=== PATIENT | female | born 2000 | race Caucasian/White ===

== ENCOUNTER 2022-11-08 19:00 | Inpatient (IN) | payer OTHER, SELFPAY ==
[2022-11-07 22:53] VITALS: BMI 37.0
[2022-11-07 23:01] VITALS: PULSE 76; O2SAT 97
[2022-11-07 23:02] VITALS: BP 163/102; PULSE 78; TEMP 37; O2SAT 99
[2022-11-07] MEDS: 0.9% Saline Lock 10 ML Syringe IV (23:10)
[2022-11-07 23:17] VITALS: BP 156/99; PULSE 78
[2022-11-07 23:33] VITALS: BP 155/106; PULSE 71
[2022-11-07 23:39] LABS: Hematocrit 31.2 % (37-47); Hemoglobin 10.3 g/dL (12.0-15.0); Mean Corpuscular Hgb 31.7 pg (27.0-32.0); Platelet Count 200 K/mm3 (150-450); RBC Distribution Width CV 13.4 % (11.6-14.6); RBC Distribution Width SD 46.5 fl (35.1-43.9); Red Blood Count 3.25 M/mm3 (4.2-5.4); White Blood Count 8.1 K/mm3 (4.4-11.0)
[2022-11-07 23:47] VITALS: BP 155/100; PULSE 65
[2022-11-07 23:54] LABS: AST(SGOT) 20 U/L (15-37); Alanine Aminotransfer ALT/SGPT 16 U/L (13-56); Creatinine, Serum 0.79 mg/dL (0.55-1.02); EST Glomerular Filtration Rate 96 mL/min (>60); Est Glom Filt Rate - Afr Amer 116 mL/min (>60); Estimated Creatinine Clearance 111.72 ml/min; Uric Acid 5.5 mg/dL (2.6-6.0)
[2022-11-07 23:56] LABS: Protein, Urine (Random) 17.4 mg/dL (<11.9); Protein:Creat Ratio 154 mg/g CRE (0-200)
[2022-11-08] VITALS (19 sets, daily range): BP systolic 125–147; BP diastolic 70–104; PULSE 47–96; TEMP 36.3–37.2; O2SAT 97–98
--- NOTE | 2022-11-08 04:49 | PCM.HP.OB ---
HPI - General General Date of Admission: 11/08/22 Date of Service: 11/08/22 Chief Complaint: headache, swelling, elevated blood pressure at home HPI Narrative SABIHA TSAI, is a 22 F 36w6d who presents for r/o pre eclampsia. She reports worsened swelling and weight gain recently. She had a dull headache yesterday that improved with Tylenol. She has a dull headache currently. No visual changes. No upper abdominal pain, malaise, nausea, vomiting. No ctx, vb, lof. Good FM. She checked her BP's at home yesterday and they were elevated in the mild range. [facility] Medical History (Updated 11/08/22 @ 04:[address] Ce Spann, DO) Anxiety Gestational HTN Polyhydramnios Home Medications aspirin 81 mg capsule 81 mg PO DAILY BMI 11/07/22 [History Last Taken 11/07/22] escitalopram oxalate 10 mg tablet (Lexapro) 10 mg PO DAILY anxiety 11/07/22 [History Last Taken 11/07/22] vits,calcium 91-iron 28 mg-folic 975 mcg-dha 200 mg oral pack ( + DHA) 1 pkg PO DAILY pregnacny 11/07/22 [History Last Taken 11/07/22] Allergy/AdvReac Type Severity Reaction Status Date / Time No Known Allergies Allergy Verified 11/07/22 22:54 Social History Smoking Status: Never smoker History Elective abortions Hx Para 0 Spontaneous abortions Hx # Term Pregnancies Ectopic pregnancies Hx # Pregnancies Multiple births # of living children NST FHR Rate Baby A Baseline: 120 Variability:: Moderate Accelerations:: 15 x 15 Decelerations:: None FHR Category:: Category I Uterine Activity:: Irregular ctx's Vital Signs Vital Signs Vital Signs: 11/07/22 23:01 11/07/22 23:01 11/07/22 23:02 Temperature Temperature Source Pulse Rate 76 Blood Pressure 163/102 H BP Systolic 163 BP Diastolic 102 Pulse Ox 97 11/07/22 23:02 11/07/22 23:17 11/07/22 23:17 Temperature Temperature Source Pulse Rate 78 78 Blood Pressure 156/99 H BP Systolic 156 BP Diastolic 99 Pulse Ox 11/07/22 23:33 11/07/22 23:33 11/07/22 23:47 Temperature Temperature Source Pulse Rate 71 Blood Pressure 155/106 H 155/100 H BP Systolic 155 155 BP Diastolic 106 100 Pulse Ox 11/07/22 23:47 11/07/22 23:02 11/07/22 23:02 Temperature Temperature Source Temporal Pulse Rate 65 Blood Pressure BP Systolic BP Diastolic Pulse Ox 99 11/07/22 23:02 11/08/22 00:03 11/08/22 00:03 Temperature 98.6 F Temperature Source Pulse Rate 79 Blood Pressure 143/104 H BP Systolic 143 BP Diastolic 104 Pulse Ox 11/08/22 00:18 11/08/22 00:18 11/08/22 00:32 Temperature Temperature Source Pulse Rate 91 Blood Pressure 147/97 H 135/78 H BP Systolic 147 135 BP Diastolic 97 78 Pulse Ox 11/08/22 00:32 11/08/22 00:50 11/08/22 00:50 Temperature Temperature Source Pulse Rate 60 57 L Blood Pressure 136/77 H BP Systolic 136 BP Diastolic 77 Pulse Ox 11/08/22 01:02 11/08/22 01:02 11/08/22 02:10 Temperature Temperature Source Pulse Rate 59 L Blood Pressure 136/78 H 131/70 H BP Systolic 136 131 BP Diastolic 78 70 Pulse Ox 11/08/22 02:10 11/08/22 02:10 11/08/22 02:10 Temperature 97.4 F L Temperature Source Temporal Pulse Rate 50 L Blood Pressure BP Systolic BP Diastolic Pulse Ox 11/08/22 03:16 11/08/22 03:16 11/08/22 03:16 Temperature Temperature Source Pulse Rate 47 L 52 L Blood Pressure 125/70 H BP Systolic 125 BP Diastolic 70 Pulse Ox 11/08/22 03:16 11/08/22 04:16 11/08/22 04:16 Temperature Temperature Source Pulse Rate 57 L Blood Pressure 144/95 H BP Systolic 144 BP Diastolic 95 Pulse Ox 98 Weight Weight: 243 lb 13.3 oz Body Mass Index (BMI) 37.0 Labs Labs Labs: Hct 31.2 % (37-47) L Hgb 10.3 g/dL (12.0-15.0) L Assessment & Plan (1) 36 weeks gestation of : PLAN: Admit for observation for serial BP monitoring. Initial BP was severe but no additional severe ranges since. Majority of BP's mild range. Pre e labs normal. - Discussed with pt gHTN at this time and recommended delivery at 37 weeks. I have some concern that she will develop severe gHTN or pre e given her initial severe range BP, dull headache, 1+ pitting edema. Discussed r/b/a of starting an induction today with an intracervical villanueva. Discussed risks of prematurity with baby with induction, and also risk of developing worsened high blood pressure disease with prolonging . Questions answered. Will continue with observation at this time and discuss with provider who will be microsoft solutions architect for the day today. (2) Headache in : (3) Gestational hypertension: (4) Obesity affecting : (5) Polyhydramnios:
[2022-11-08] MEDS: Lactated Ringers 1,000 ML 50 ML IV (19:30)
[2022-11-08 19:50] LABS: Absolute Lymphocyte Count 2.02 X10^3/uL (0.83-4.51); Absolute Neutrophil Count 6.1 X10^3/uL (2.0-7.7); Basophil# 0.02 X10^3/uL; Basophil% 0.2 % (0-1); Eosinophil# 0.02 X10^3/uL; Eosinophils% 0.2 % (0-5); Hematocrit 32.3 % (37-47); Hemoglobin 10.6 g/dL (12.0-15.0); Lymphocyte # 2.02 X10^3/ul (0.83-4.51); Lymphocyte % 22.6 % (19-41); Mean Corp Hgb Conc 32.8 g/dL (32-36); Mean Corpuscular Hgb 31.5 pg (27.0-32.0); Mean Corpuscular Volume 95.8 fL (81-99); Mean Platelet Vol. 12.9 fl (6.2-12.0); Monocyte# 0.77 X10^3/uL; Monocyte% 8.6 % (0-10); NRBC Flagged by Analyzer 0 % (0-5); Neutrophil # 6.08 X10^3/uL (2.7-7.7); Neutrophil % 68.1 % (47-70); Platelet Count 214 K/mm3 (150-450); RBC Distribution Width CV 13.5 % (11.6-14.6); RBC Distribution Width SD 47.5 fl (35.1-43.9); Red Blood Count 3.37 M/mm3 (4.2-5.4); White Blood Count 8.9 K/mm3 (4.4-11.0)
--- NOTE | 2022-11-08 20:05 | PCM.HP.OB ---
HPI - General General Date of Admission: 11/08/22 HPI Narrative SABIHA TSAI, is a 22 F who presents for induction. She was seen earlier for for headache, swelling & elevated BP. Maternal Data Information Final JAYLENE: 11/30/22 Gestational age: 36&6 PFSH PFSH Medical History Anxiety Gestational HTN Polyhydramnios Home Medications aspirin 81 mg capsule 81 mg PO DAILY BMI 11/07/22 [History Last Taken 11/07/22] escitalopram oxalate 10 mg tablet (Lexapro) 10 mg PO DAILY anxiety 11/07/22 [History Last Taken 11/07/22] vits,calcium 91-iron 28 mg-folic 975 mcg-dha 200 mg oral pack ( + DHA) 1 pkg PO DAILY pregnacny 11/07/22 [History Last Taken 11/07/22] Allergy/AdvReac Type Severity Reaction Status Date / Time No Known Allergies Allergy Verified 11/07/22 22:54 Social History Smoking Status: Never smoker History Elective abortions Hx Para 0 Spontaneous abortions Hx # Term Pregnancies Ectopic pregnancies Hx # Pregnancies Multiple births # of living children NST FHR Rate Baby A Baseline: 135 Variability:: Moderate Accelerations:: 15 x 15 Decelerations:: None Uterine Activity:: Irregular Vital Signs Vital Signs Vital Signs: 11/07/22 23:01 11/07/22 23:01 11/07/22 23:02 Temperature Temperature Source Pulse Rate 76 Blood Pressure 163/102 H BP Systolic 163 BP Diastolic 102 Pulse Ox 97 11/07/22 23:02 11/07/22 23:17 11/07/22 23:17 Temperature Temperature Source Pulse Rate 78 78 Blood Pressure 156/99 H BP Systolic 156 BP Diastolic 99 Pulse Ox 11/07/22 23:33 11/07/22 23:33 11/07/22 23:47 Temperature Temperature Source Pulse Rate 71 Blood Pressure 155/106 H 155/100 H BP Systolic 155 155 BP Diastolic 106 100 Pulse Ox 11/07/22 23:47 11/07/22 23:02 11/07/22 23:02 Temperature Temperature Source Temporal Pulse Rate 65 Blood Pressure BP Systolic BP Diastolic Pulse Ox 99 11/07/22 23:02 11/08/22 00:03 11/08/22 00:03 Temperature 98.6 F Temperature Source Pulse Rate 79 Blood Pressure 143/104 H BP Systolic 143 BP Diastolic 104 Pulse Ox 11/08/22 00:18 11/08/22 00:18 11/08/22 00:32 Temperature Temperature Source Pulse Rate 91 Blood Pressure 147/97 H 135/78 H BP Systolic 147 135 BP Diastolic 97 78 Pulse Ox 11/08/22 00:32 11/08/22 00:50 11/08/22 00:50 Temperature Temperature Source Pulse Rate 60 57 L Blood Pressure 136/77 H BP Systolic 136 BP Diastolic 77 Pulse Ox 11/08/22 01:02 11/08/22 01:02 11/08/22 02:10 Temperature Temperature Source Pulse Rate 59 L Blood Pressure 136/78 H 131/70 H BP Systolic 136 131 BP Diastolic 78 70 Pulse Ox 11/08/22 02:10 11/08/22 02:10 11/08/22 02:10 Temperature 97.4 F L Temperature Source Temporal Pulse Rate 50 L Blood Pressure BP Systolic BP Diastolic Pulse Ox 11/08/22 03:16 11/08/22 03:16 11/08/22 03:16 Temperature Temperature Source Pulse Rate 47 L 52 L Blood Pressure 125/70 H BP Systolic 125 BP Diastolic 70 Pulse Ox 11/08/22 03:16 11/08/22 04:16 11/08/22 04:16 Temperature Temperature Source Pulse Rate 57 L Blood Pressure 144/95 H BP Systolic 144 BP Diastolic 95 Pulse Ox 98 11/08/22 07:22 11/08/22 07:22 11/08/22 07:22 Temperature Temperature Source Pulse Rate 66 68 Blood Pressure 140/95 H BP Systolic 140 BP Diastolic 95 Pulse Ox 11/08/22 07:22 11/08/22 07:22 11/08/22 07:22 Temperature Temperature Source Temporal Pulse Rate Blood Pressure 140/95 H BP Systolic 140 BP Diastolic 95 Pulse Ox 98 11/08/22 07:22 11/08/22 07:22 11/08/22 07:22 Temperature 97.3 F L Temperature Source Pulse Rate 72 Blood Pressure BP Systolic BP Diastolic Pulse Ox 98 11/08/22 19:20 11/08/22 19:20 11/08/22 19:24 Temperature Temperature Source Pulse Rate 93 96 Blood Pressure 142/92 H BP Systolic 142 BP Diastolic 92 Pulse Ox 06/25/23 19:24 11/08/22 19:29 11/08/22 19:29 Temperature Temperature Source Pulse Rate 91 Blood Pressure BP Systolic BP Diastolic Pulse Ox 98 98 Weight Weight: 243 lb 13.3 oz Body Mass Index (BMI) 37.0 Physical Exam Const alert, oriented x3 and no apparent distress Chest inspection of chest normal GI soft to palpation, non-tender and non-distended Inspection: gravid external exam normal Narrative: cvx - /-3, intracervical villanueva placed without difficulty Labs Labs Labs: Blood Type Pending Antibody Screen Pending Hct 32.3 % (37-47) L Hgb 10.6 g/dL (12.0-15.0) L Syphilis Total Ab Pending See [facility] H&P Assessment & Plan (1) Gestational hypertension: COMMENT: @ 36&6 (2) Polyhydramnios: PLAN: Plan Admit to L&D IOL - intracervical villanueva placed & will start pitocin at midnight PreE labs normal & will monitor BP's GBS negative EFW - less than 4500g, patient with adequate pelvis Pain - epidural as desired Routine care
[2022-11-08] MEDS: 0.9% Normal Saline Single 100 ML IV.SOLN. INTRA-UTER (20:08)
[2022-11-08 21:00] LABS: Syphilis Antibodies Non-reactive
[2022-11-09] VITALS (87 sets, daily range): BP systolic 120–160; BP diastolic 67–104; PULSE 65–195; RESP 14–15; TEMP 36.2–37.2; O2SAT 85–100
[2022-11-09] MEDS: Oxytocin 15 Units/NS 250ml 15 UNITS/250 ML IV.SOLN 2 UNITS IV (00:03)
[2022-11-09] MEDS: LACTATED RINGERS 500 ML 999 ML IV (05:58)
[2022-11-09] MEDS: fentaNYL-bupivacaine (epidural) 100 ML BAG EPIDURAL (06:46)
--- NOTE | 2022-11-09 08:45 | PN.OBGYN_ITS ---
Subjective Subjective Resting comfortable in bed with epidural. Partner at bedside. Objective Data Objective Data Vital Signs: Vital Signs Temp Pulse BP Pulse Ox 98.3 F 70 134/76 H 98 11/09/22 08:22 11/09/22 08:22 11/09/22 08:21 11/09/22 08:22 Weight: 243 lb 13.3 oz Body Mass Index (BMI) 37.0 Intake & Output: Intake and Output for Last 24 Hours 11/07/22 11/08/22 11/09/22 23:59 23:59 23:59 Intake Total 1037.73 / 1037.73 Balance 1037.73 / 1037.73 Lab / Micro Data Result Diagrams: 11/08/22 19:30 11/07/22 23:10 Labs: Laboratory Results - last 24 hr 11/08/22 19:30: WBC 8.9, RBC 3.37 L, Hgb 10.6 L, Hct 32.3 L, MCV 95.8, MCH 31.5, MCHC 32.8, RDW Std Deviation 47.5 H, RDW Coeff of Lyn 13.5, Plt Count 214, MPV 12.9 H, Immature Gran % (Auto) 0.300, Neut % (Auto) 68.1, Lymph % (Auto) 22.6, [place] % (Auto) 8.6, Eos % (Auto) 0.2, Baso % (Auto) 0.2, Absolute Neuts (auto) 6.1, Absolute Lymphs (auto) 2.02, Nucleated RBC % 0 11/08/22 19:30: Blood Type A POSITIVE, Antibody Screen NEGATIVE 11/08/22 19:50: Syphilis Total Ab Non-reactive Physical Exam Manual OB Exam: presentation cephalic, dilated 4, effaced 70, station -1 and other AROM clear fluid Amniotic Fluid: clear amniotic fluid NST FHR Rate Baby A Baseline: 130 Variability:: Moderate Accelerations:: 15 x 15 Decelerations:: None FHR Category:: Category I Uterine Activity:: every 2-3 minutes, strong Assessment & Plan (1) Polyhydramnios: (2) Obesity affecting : (3) Gestational hypertension: COMMENT: @ 36&6 PLAN: Plan 1) Epidural for pain management 2) Continue with pitocin IOL per protocol 3) AROM 4) BP remains mild range 5) collaborative physician and notified of patient status.
[2022-11-09] MEDS: Ondansetron 4 MG/2 ML Vial IV (08:57)
[2022-11-09] MEDS: Lactated Ringers 1,000 ML 200 ML IV (09:02)
[2022-11-09] MEDS: Oxytocin 15 Units/NS 250ml 15 UNITS/250 ML IV.SOLN 83 UNITS IV (12:56)
--- NOTE | 2022-11-09 13:26 | EX.PCM.OBRPT ---
Assessment & Plan (1) Vaginal delivery: (2) First degree perineal laceration: Vaginal Delivery Maternal Presentation Maternal Presentation: Medically Indicated Induction Type of Induction: Pitocin and Pal Bulb Medical Reason for Induction: Gestational Hypertension Operative Information Date of Procedure: 11/09/22 Pre-Operative Diagnosis: GHTN, Induction of Labor Post-Operative Diagnosis: , first degree perineal laceration Surgery / Procedure Performed: Spontaneous Vaginal Delivery Type of Anesthesia: Epidural Estimated Blood Loss: 450 mle Time of Delivery: 11:54 Findings Description of Procedure: Progressed to complete with urge to push. Epidural for pain management. of viable male over first degree perineal laceration. APGARS 8,9 respectively. Infant head delivered with body immediately forthcoming. Placed on maternal abdomen, strong cry. Mouth and nares suctioned for secretions. Pitocin started for active 3rd stage management. Cord doubly clamped and cut by FOB after pulsations ceased, delayed cord clamping. Placenta delivered intact via mateusz, 3 vessel cord intact. Perineum inspected and revealed 1st degree perineal laceration. Repaired with 3.0 vicryl rapide and epidural. Fundus firm and hemostasis achieved. EBL 450ml. Mom and baby stable, planning to breastfeed. Family bonding well. Dr. Spann notified of delivery. Presentation: Vertex and TRACE Amniotic Membrane Rupture Type: Artificial Amniotic Fluid Description: Clear Placental Delivery Description: Expressed Placenta Disposition: [facility] Cord Vessel Description: 3 Vessels Cord Entanglement: Around neck x 1, loose Nuchal Cord Compression: Without compression Infant A Gender: Male (1 minute): 8 (5 minute): 9 Delayed Cord Clamping: Yes Post Vaginal Delivery Medications Given After Delivery: IV Pitocin Episiotomy Description: None Laceration: 1st degree Complication Complications: None
[2022-11-09] MEDS: 0.9% Saline Lock 10 ML Syringe IV (15:08)
[2022-11-09] MEDS: Benzocaine/Lanolin/Aloe Vera 1 SPRAY EACH TOPICAL (15:08)
[2022-11-09] MEDS: Ibuprofen 600 MG Tablet PO (15:08)
[2022-11-09] MEDS: Acetaminophen 500 MG Tablet 1000 MG PO (20:00)
[2022-11-09] MEDS: Escitalopram Oxalate 10 MG Tablet PO (20:00)
[2022-11-10] VITALS (11 sets, daily range): BP systolic 118–131; BP diastolic 71–91; PULSE 54–65; RESP 15–16; TEMP 36.5–37; O2SAT 98–99
[2022-11-10] MEDS: Ibuprofen 600 MG Tablet PO ×2 (08:57→20:14)
--- NOTE | 2022-11-10 08:59 | PCM.PN.OB ---
Subjective Subjective Denies complaints Objective Data Objective Data Vital Signs: Vital Signs Temp Pulse Resp BP Pulse Ox O2 Del Method 97.7 F L 65 16 131/91 H 99 Room Air 11/10/22 07:38 11/10/22 07:38 11/10/22 07:38 11/10/22 07:38 11/10/22 07:35 11/10/22 05:15 Oxygen Delivery Method Room Air Weight: 243 lb 13.3 oz Body Mass Index (BMI) 37.0 Intake & Output: Intake and Output for Last 24 Hours 11/08/22 11/09/22 11/10/22 23:59 23:59 23:59 Intake Total 3180.00 / 3180.00 Output Total 1700 / 1700 600 / 600 Balance 1480.00 / 1480.00 -600 / -600 Lab / Micro Data Result Diagrams: 11/08/22 19:30 11/07/22 23:10 Physical Exam Const alert, oriented x3 and no apparent distress HEENT normocephalic GI soft to palpation, non-tender and non-distended GI Narrative: fundus firm, mid & below umbilicus Extremity normal to inspection and no calf tenderness Assessment & Plan (1) Gestational hypertension: COMMENT: PPD#1 (2) Vaginal delivery: PLAN: Plan Routine care BP normal to minimal elevation & will monitor
--- NOTE | 2022-11-10 11:24 | CASEMGMT ---
Social Work Assessment Labor and Delivery Unit Patient Address: [address] [place] [address] [address] [id number] Phone number: [phone] Date of Referral: 11/09/22 Time of Referral: 1301 Referred By: Loren Stanton Date of Intervention: 11/10/22 Time of Intervention: 1020 Reason for Referral: Mental Health History obtained from: medical records and mother of baby (JOSE), Alanis and father of baby (FOB), Jace. Household composition: Currently residing at the home are parents, no one else lives with family at this time. Patient's parent/guardian status: Parents report they ciro when they were 15 years old at a [employer] event and they have been together ever since. They will be celebrating their one year wedding anniversary next month. Medical History: This is first and delivery for JOSE. JOSE started to experience pre-eclampsia and required an induction at 37 weeks gestation. JOSE reports that she had a lot of anxiety due to not knowing what to expect with the induction and labor, but now that baby is here she is feeling much better. JOSE received routine are with [facility]. Baby boy, Kip, was born at 37 weeks weighing 3180 grams and his apgars were 8 and 9. Baby will be seen by fish roe processor Dr. Lamar Mcneill. Educational Status: Both parents attended college. FOLizzy obtained his teaching degree. JOSE has two more semesters left at [employer] to obtain her nursing degree. Parents deny concerns with reading/ writing and learning. Financial Status: JESSIE is a highway technician and transit coach operator. He gets most of the summer off and will return to work mid December. JOSE works as a nurses aide at [employer] in [place]. JOSE states that once she obtains her nursing degree she is not sure what capacity she would like to work in. Infant Supplies: Parents report they had a baby shower and have received everything they need for baby including a safe sleep space, car seat, clothes, diapers and wipes. Parents state that baby is first baby on both sides of the family and he is very spoiled already. Childcare/ Caregiver(s): Parents report that they will not need to pay for childcare because they have a lot of family members who are willing and able to watch baby when both parents are back to work. Transportation: No transportation barriers at this time, both parents have drivers license and reliable transportation. Programs/Agencies Involved: None- sw provided literature on [facility] and encouraged parents to get connected. Parents to discuss and sw will revisit with them prior to discharge. Children Services/Legal Issues: None Behavioral Health Issues Mental Health History: FOB denies mental health history. JOSE disclosed being diagnosed with anxiety. MOB states that she was taking Lexapro earlier in , and discontinued. MOB states that several weeks ago she started to get anxious regarding delivery and talked to her PCP about restarting Lexapro in preparation to maintain her mental health after delivery. Sw educated both parents on signs and symptoms of baby blues and post depression. FOB stepped out and MOB completed [place] Depression screen. MOB score was 9, sw provided support and encouraged MOB to follow up with PCP/ OBGYN. Sw provided MOB with list of counseling agencies in [facility]. MOB states that she feels a lot of the questions on the screen were reflective of how she was feeling this past week leading up to delivery. MOB states that now that baby has been born and she is through the birthing process she feels elated and is no longer overwhelmed or anxious. Substance Use History: none, MOB denies substances during . Family History: MOB denies family substance use history. Drug Screens: none Family/Social Stressors: JOSE reports that she does not feel stressed or have any stressors at this time. Support Systems: Parents state they have a large support system found in family and friends. Depression/Shaken Baby/Safe Sleeping: Sw provided education and resources on post depression. Sw educated parents to never shake a baby, parents expressed understanding. Sw also discussed ABCs of safe sleep and importance of following guidelines to prevent SIDS. Parents expressed understanding. ASSESSMENT: Parents were engaged in conversation during sw assessment. Parents have large support system and all provisions necessary to take baby home. Parents were open and receptive to sw involvement and support. MOB scored 9 on [place]anco and was encouraged to follow up with PCP/ OBGYN. PLAN: Sw will follow up with parents prior to discharge to determine whether or not they want to get connected to [facility]. No other services requested or indicated. Fran Smith, C[employer]ER [employer], SYSTEM ADMINISTRATOR
[2022-11-10] MEDS: Escitalopram Oxalate 10 MG Tablet PO (20:15)
[2022-11-11] VITALS (9 sets, daily range): BP systolic 139–146; BP diastolic 91–98; PULSE 60–71; RESP 16; TEMP 36.1–36.5; O2SAT 97–98
--- NOTE | 2022-11-11 08:32 | PCM.PN.OB ---
Subjective Subjective Patient seen at bedside. Denies any headache, dizziness, vision changes or RUQ pain. Ambulating and voiding without difficulty. with support. Desires discharge home later today. Objective Data Objective Data Vital Signs: Vital Signs Temp Pulse Resp BP Pulse Ox O2 Del Method 97.3 F L 61 16 146/98 H 98 Room Air 11/11/22 01:57 11/11/22 08:11 11/11/22 01:57 11/11/22 08:11 11/11/22 07:52 11/11/22 01:57 Oxygen Delivery Method Room Air Weight: 243 lb 13.3 oz Body Mass Index (BMI) 37.0 Intake & Output: Intake and Output for Last 24 Hours 11/09/22 11/10/22 11/11/22 23:59 23:59 23:59 Intake Total 3180.00 / 3180.00 Output Total 1700 / 1700 600 / 600 Balance 1480.00 / 1480.00 -600 / -600 Lab / Micro Data 11/08/22 19:30 11/07/22 23:10 ROS Eyes Eyes: Denies blurry vision, change in vision or spots in vision ENT HEENT: Denies dizziness or headache(s) Cardiovascular Cardiovascular: Denies abdominal pain, chest pain or dyspnea Respiratory/Chest Respiratory/Chest: Denies cough, dyspnea, shortness of breath at rest or shortness of breath with exertion Gastrointestinal Gastrointestinal: Denies abdominal pain, diarrhea or vomiting Genitourinary Genitourinary: Denies change in urinary stream, difficulty urinating or dysuria Musculoskeletal Musculoskeletal: Reports none Integumentary Integumentary: Denies rash Neurologic Neurologic: Denies dizziness, headache(s), memory loss or weakness Physical Exam Const alert and no apparent distress General Appearance: cooperative and comfortable Exam Limitations: no limitations HEENT normocephalic Eyes General Eye: normal appearance of both eyes Neck full ROM General: normal visual inspection Chest Chest: symmetrical chest wall rise Resp normal respiratory effort and normal air movement Effort and Inspection: symmetric chest movement Auscultation: clear to auscultation bilaterally Cardio regular rate and regular rhythm GI normal to inspection, nondistended, normoactive bowel sounds Back/Spine normal ROM Extremity full ROM and no calf tenderness General Extremity: normal exam except as noted Skin no rashes or lesions noted Neuro CN's II-XII intact bilaterally Psych mental status grossly normal Assessment & Plan (1) First degree perineal laceration: (2) Vaginal delivery: (3) Obesity affecting : (4) Gestational hypertension: COMMENT: PPD#2 PLAN: Plan PPD 2 GHTN- current pressures today are 139-145/96 Start Labetalol 200 mg PO BID Recheck BP after medication initiated If D/C home - blood pressure monitoring program Follow up in office this week Dr. Mart involved in plan of care
--- NOTE | 2022-11-11 09:44 | CASEMGMT ---
Social Work Labor and Delivery Unit ? Summary:?Following up regarding resources ? Assessment:??Sw presented to bedside and met with parents. Mother of baby (MOB) was laying in bed and father of baby (FOB) was sitting on couch holding baby. Sw asked parents how they are doing and assessed for any needs or concerns at this time. Parents state they are doing well. MOB states that she is ready for discharge but her blood pressure is up and she is not sure now if she will be able to be discharged. Sw provided support and empathy. Sw asked parents if they are interested in a referral to [facility] when they are ready for discharge. MOB stated that they are going to pass for now, but thanked sw for the information on the resource and agreed to get connected on her own if she feels they would benefit from the resource. Sw encouraged parents to reach out if any needs or concerns should present themselves, parents agreed. ? Intervention:?Parents were engaged with sw. MOB appeared understandably upset due to elevated blood pressure today which may prohibit her from being medically ready for discharge- support provided. ? Plan:?No further sw needs identified at this time. ? ? No other services requested or indicated. Fran Smith, GLASS MOULD CLEANER, STAFF RADIATION THERAPIST
[2022-11-11] MEDS: Labetalol 100 MG Tablet PO (10:06)
--- NOTE | 2022-11-11 16:22 | DCINST_ITS ---
Discharge Instructions Diet Discharge Diet: No restrictions Activity May resume sexual activity in: 6-8 weeks Weight Bearing Status: Weight bearing as tolerated Dressing / Incision Call your doctor if you observe: Fever of 101 or Higher, Inability to urinate, Using more than 1 pad per hour, Shortness of breath, Chest pain, Calf discomfort and Uncontrolled pain Follow Up Care Please Follow Up With: Felipa Beard CNM When: 1 week visit/ 6 weeks in office Test Results: Test results from this visit will be discussed in further detail at your follow- up appointment, if applicable. Discharge Plan Admission Admit Date/Time: 11/08/22 19:00 Primary Reason for Your Visit: Labor and Delivery Attending Provider: Loren Stanton Instructions Patient Instructions: After a Vaginal , Understanding Preeclampsia Discharge Orders/Prescriptions Prescriptions: New labetalol 200 mg tablet 200 mg PO BID Qty: 30 2RF No Action escitalopram oxalate [Lexapro] 10 mg Tablet 10 mg PO DAILY + DHA 28 mg iron- 975 mcg-200 mg Combo Pack 1 pkg PO DAILY aspirin 81 mg Capsule 81 mg PO DAILY Disposition Disposition (needs filled in before D/C Order can be placed): Home, Self Care
== END 2022-11-11 16:05 | disposition home or self-care (01) | DRG 807 ==
LOC: WPOUT 19:06 → WP 19:07
PROVIDERS: Obstetrics & Gynecology; Admitting Provider Advanced Practice Midwife; Visit Provider Advanced Practice Midwife
DX: O13.4 Gestational [pregnancy-induced] hypertension without significant proteinuria, complicating childbirth (principal); Z37.0 Single live birth; O40.3XX0 Polyhydramnios, third trimester, not applicable or unspecified; E66.01 Morbid (severe) obesity due to excess calories; F41.9 Anxiety disorder, unspecified; O99.344 Other mental disorders complicating childbirth; O70.0 First degree perineal laceration during delivery; O99.214 Obesity complicating childbirth; O69.81X0 Labor and delivery complicated by cord around neck, without compression, not applicable or unspecified; Z79.82 Long term (current) use of aspirin; Z3A.37 37 weeks gestation of pregnancy; Z79.899 Other long term (current) drug therapy
CPT/HCPCS: 59025; 59050; 82565; 82570; 84156; 84450; 84460; 84550; 85025; 85027; 86780; 86850; 86900; 86901; 99221; J7120; A4216; G0378; J2405

== ENCOUNTER → 2024-11-16 | Outpatient (CLI) | payer OTHER, SELFPAY ==
[2024-11-16 12:26] LABS: Hematocrit 38.5 % (37-47); Hemoglobin 12.7 g/dL (12.0-15.0); Immature Granulocytes Count 0.020 X10^3/uL (0.0-0.0); Mean Corp Hgb Conc 33.0 g/dL (32-36); Mean Corpuscular Volume 95.3 fL (81-99); Mean Platelet Vol. 11.1 fl (6.2-12.0); NRBC Flagged by Analyzer 0 % (0-5); Platelet Count 271 K/mm3 (150-450); RBC Distribution Width CV 12.7 % (11.6-14.6); RBC Distribution Width SD 44.5 fl (35.1-43.9); Red Blood Count 4.04 M/mm3 (4.2-5.4); White Blood Count 6.7 K/mm3 (4.4-11.0)
[2024-11-16 13:01] LABS: AST(SGOT) 21 U/L (<=31); Alanine Aminotransfer ALT/SGPT 18 U/L (<=34); Albumin, Serum 4.4 g/dL (3.5-5.0); Alkaline Phosphatase 51 U/L (35-104); Anion Gap 11 (5-15); BUN 20 mg/dL (4-19); BUN/Creat Ratio 32.4 RATIO (10-20); Calcium,Total 9.7 mg/dL (7.6-11.0); Carbon Dioxide 23.7 mmol/L (21.0-32.0); Chloride 103 mmol/L (98-108); Cholesterol 243 mg/dL (<=200); Globulin 3.1 g/dL (2.2-4.2); Glucose 93 mg/dL (70-99); Low Density Lipoprotein Calc. 172 mg/dL; Potassium 4.3 mmol/L (3.3-5.1); Triglycerides 94 mg/dL; Very Low Density Lipoprotein 19 mg/dL (5-40); Vitamin B12 543 pg/mL (180-914); Vitamin D,25 Hydroxy 23.5 ng/mL (30-100); cholesterol:hdl ratio screen 4.60
== END | disposition home or self-care (01) ==
LOC: BFHLAB 10:00
PROVIDERS: PCP Nurse Practitioner Family; Visit Provider Nurse Practitioner Family
DX: Z00.01 Encounter for general adult medical examination with abnormal findings (principal); R53.83 Other fatigue
CPT/HCPCS: 36415; 80053; 80061; 82306; 82607; 84439; 84443; 85025